=== PATIENT | female | born 1980 | race Caucasian/White ===

== ENCOUNTER → 2020-08-28 07:51 | Outpatient (CLI) | payer BC, SELFPAY ==
--- NOTE | ~2020-08-28 | US_ITS ---
EXAMINATION: US thyroid EXAM DATE: 08/28/2020 08:06 INDICATION: Autoimmune thyroiditis, other specified hypothyroidism . TECHNIQUE: Multiple grayscale and Doppler images of the thyroid were obtained (by a technologist who performed the scan) and subsequently reviewed. Individual nodules and recommendations may be reporte d in accordance with TI-RADS system as designated by the 2017 ACR White Paper TI-RADS committee. The re is no prior study for comparison. FINDINGS: The thyroid gland is enlarged, heterogeneous in echogenicity, right lobe measuring 5.8 x 1.7 x 1.8 cm , the left measuring 5.8 x 1.8 x 1.9 cm. The isthmus measures 6 mm in thickness. No definite focal no dule identified within this. IMPRESSION: Moderate thyromegaly. Reviewed, dictated and finalized at location A. [facility] IMPRESSION: Moderate thyromegaly.
== END ==
DX: E06.3 Autoimmune thyroiditis (principal); E03.8 Other specified hypothyroidism
CPT/HCPCS: 76536